=== PATIENT | male | born 1940 | race Caucasian/White ===

== ENCOUNTER 2016-05-13 15:51 | Inpatient (IN) | payer OTHER ==
[~2016-05-13] VITALS: Ht 185.4 cm; Wt 126.5 kg
--- NOTE | ~2016-05-13 | CATHLAB ---
[facility] [place] [address] INVASIVE PROCEDURE REPORT Name: FRANCISCO JOHNSTIFFANY Cortes Room #: 219-P [facility] IN ..#: [id number] Admission: 05/13/16 Attend Phys: Alena Cotton Discharge: Date of : 40 Date of Service: 05/15/16 1314 Report #: [id number] THIS REPORT FOR: //name// CC: Efrain Rowe DATE OF SERVICE: 05/15/2016 NAME OF PROCEDURE: 1. Left superficial femoral artery atherectomy and stent placement. 2. Secondary thrombectomy, left superficial femoral artery. INDICATIONS: Severe peripheral arterial disease. Coronary artery disease. Nonhealing ulcers on the toes of both feet. Previous diagnostic angiogram shows bilateral right and left superficial femoral artery occlusions. DESCRIPTION OF PROCEDURE: Procedure and risk of the left SFA intervention including atherectomy stent placement and thrombectomy were discussed with the patient and his as well as the risk of worsening ischemic symptoms and limb loss. The patient's right groin was prepped and draped in normal sterile fashion. Ultrasound was used to interrogate the right groin and showed the right common femoral artery to be patent. Under ultrasound guidance, access into the right common femoral artery was obtained and a 5 Bermudian sheath was placed. Through this, a catheter was placed to the level of the left common femoral artery and a support wire was placed. A 6-Bermudian crossover sheath was placed via the right groin to the level of the left common femoral artery. Angled catheter/wire were used to manipulate across the area of complete occlusion throughout most of the length of the left superficial femoral artery. Note is made of an old occluded stent in the distal left superficial femoral artery and uppermost popliteal artery. This was successfully crossed with a wire. There was some difficulty in manipulating catheters across the area of occlusion, however. Atherectomy throughout the left superficial femoral artery and upper left popliteal artery was carried out with a 2.0 ContestMachine laser catheter in the standard fashion. Following this, there was poor flow with areas of thrombus and because of this a secondary thrombectomy was performed with a mechanical suction thrombectomy catheter throughout the left superficial femoral artery. Following this, a balloon angioplasty to 4 and 5 mm throughout the length of the left SFA occlusion was accomplished. Again, good flow had not yet been reestablished. Because of this a 6 x 150, 6 x 150, and 6 x 80 smart control stents were placed across the areas of residual stenosis and occlusion throughout the left superficial femoral arteries. These were subsequently dilated to 5 mm. Despite good placement and position of the stents followup angiogram showed satisfactory flow had not been reestablished across the left SFA. Additional diagnostic images from the knee to the ankle on the left was accomplished. Consideration was given to thrombolytic therapy as well as stent graft placement, but in our [address] [address] INVASIVE PROCEDURE REPORT Name: GENESIS JOHNS Room #: 219-P [facility] IN M.R.#: [id number] Admission: 05/13/16 Attend Phys: Alena Cotton Discharge: Date of : 40 Date of Service: 05/15/16 1314 Report #: [id number] experiences has not been helpful in these situations, it was not felt worth the additional risk to the patient. Catheters and wires were removed. Sheath was exchanged for a standard 7-Bermudian length sheath. This will be removed in a couple of hours in the slab lifting engineer holding area. The patient had been on full dose Integrilin throughout the procedure and 5000 units of heparin had been used as well. FINDINGS: Atherectomy and stent placement throughout the occluded left superficial femoral artery was technically satisfactory, but despite this adequate flow throughout the left SFA could not be reestablished despite the techniques above. At the conclusion of the procedure, the patient's flow is at preprocedure baseline including the previously noted stenosis in the mid left popliteal artery and the critical grade stenosis in the distal left popliteal artery and left tibioperoneal trunk. There is chronic occlusion of the left anterior and posterior tibial artery as seen on angiogram from 04/24/2016. The proximal left peroneal artery refills and is a satisfactory size vessel to the level of the ankle where it refills small pedal vessels as previously noted. IMPRESSION: Left SFA atherectomy and stent placement was not successful in reestablishing adequate arterial flow throughout the left SFA. I will discuss this case further with Dr. Berry Garcia at wound care. If wound care is unsuccessful in healing the patient's toe ulcers then the patient's only choice would be a right femoral-posterior tibial artery and a left femoral-peroneal artery bypass. <ELECTRONICALLY SIGNED> By: Phillip Estrada MD 05/16/16 0848 1314 1856 Phillip Estrada MD /nt
--- NOTE | ~2016-05-13 | EKG ---
[address] [address] ELECTROCARDIOGRAM REPORT Name: JOHNSGENESIS THOMPSON Room #: 219-P ADM IN M.R.#: [id number] Admission: 05/13/16 Attend Phys: Antwan Rowe MD Discharge: Date of : 40 Report #: [id number] THIS REPORT FOR: //name// [facility] Test Date: 2016-05-16 Test Time: 12:10:46 Pat Name: GENESIS JOHNS Department: Room: 219 P Gender: M Enrollment Management Manager: YOLIE : 1940 Requested By: Jf Siddiqi Order Number: [id number] MD: Jf Siddiqi Measurements Intervals [place] Rate: 77 P: 56 [place]: 156 QRS: 190 QRSD: 192 T: 1 QT: 514 QTc: 582 Interpretive Statements Atrial-sensed ventricular-paced rhythm No further analysis attempted due to paced rhythm Baseline wander in lead(s) V4 Compared to ECG 05/15/2016 16:39:08 No significant changes Electronically Signed On 05-17-2016 8:02:11 ASSEMBLY CLEANER by Jf Siddiqi [email or web address] <ELECTRONICALLY SIGNED> By: Jf Siddiqi MD 05/17/16 0802 1210 1210 Jf Siddiqi MD /EPI
--- NOTE | ~2016-05-13 | HC ---
[facility] [place] [address] CONSULTATION Name: GENESIS JOHNS Sebastian Room #: 219-P [facility] IN M.R.#: [id number] Admission: 05/13/16 Attend Phys: Antwan Rowe MD Discharge: 05/19/16 Date of : 40 Report #: [id number] THIS REPORT FOR: //name// CC: Efrain Rowe DATE OF SERVICE: 05/14/2016 HISTORY OF PRESENT ILLNESS: A 75-year-old white man seen in Infectious Disease consultation for possibility of cellulitis of lower extremities. The patient is well known to have peripheral vascular disease and he is scheduled to have procedure to lower extremities for this issue. The patient had previous episode of lower extremity ulcerations for which he underwent skin biopsies and he was diagnosed to have IgA vasculitis, lower extremities initially treated with systemic steroids but failed to respond. He was evaluated by dermatologic, Dr. Millard whom I will try to contact to determine the skin biopsy results. PAST MEDICAL HISTORY: Coronary artery disease, coronary artery bypass grafting. Ischemic cardiomyopathy. Status post biventricular ICD implantation on 02/15/2014. Hypertension. Peripheral vascular disease. Chronic kidney insufficiency. Diabetes mellitus. Hypertension. Paroxysmal atrial fibrillation. DRUG ALLERGIES: DOXYCYCLINE. MEDICATIONS: The patient is on treatment with magnesium hydroxide, Atrovent and albuterol inhalation treatments, p.r.n. ondansetron, p.r.n. morphine sulfate, melatonin at bedtime, citalopram, loratadine, amiodarone, aspirin, lisinopril, fenofibrate, atorvastatin, potassium chloride supplementation, pantoprazole, Benadryl p.r.n., insulin aspart taper sliding scale, ranolazine, insulin detemir, carvedilol, isosorbide mononitrate, p.r.n. glucose glucagon, p.r.n. nitroglycerin. SOCIAL AND FAMILY HISTORY, REVIEW OF SYSTEMS: See H and P and as above. PHYSICAL EXAMINATION: GENERAL: Overweight man, not toxic looking, no distress, afebrile since admission. VITAL SIGNS: Temperature 97.5, pulse 62, respirations 18, BP 148/85. HEENMT: Within range. NECK: Supple, no thyromegaly. LUNGS: Clear. CARDIOVASCULAR: S1, S2. No gallop or murmur. ABDOMEN: Obese, soft. EXTREMITIES: There is an erythematous discoloration of legs, but no increased temperature. Peripheral pulses not possible. There are superficial ulcerations [address] [address] CONSULTATION Name: GENESIS JOHNS Room #: 219-P [facility] IN [facility].#: [id number] Admission: 05/13/16 Attend Phys: Antwan Rowe MD Discharge: 05/19/16 Date of : 40 Report #: [id number] on toes and legs, no signs of infection. NEUROLOGIC: Grossly within normal limits. ASSESSMENT: 1. Lower extremities erythema, swelling, superficial skin ulceration of toes, possible vasculitis by biopsy in year 2013 - IgA vasculitis. 2. Severe peripheral vascular disease vascular intervention. 3. Diabetes mellitus. 4. Chronic kidney disease. 5. Coronary artery bypass grafting and ischemic cardiomyopathy. 6. Status post permanent pacemaker and ICD replacement year 2013. 7. Anemia of chronic disease. SUGGESTIONS: At present very much we are dealing with acute bacterial cellulitis. Suspect we may be dealing with some vasculitic and peripheral vascular disease issues. We will monitor sed rate and CRP. We will try to contact Dr. Millard, rate setter to determine treatments that were instituted after skin biopsy was obtained. At present, no indication for antibiotic. Dr. Jf Siddiqi, thank you for requesting my suggestion. <ELECTRONICALLY SIGNED> By: Zach Siddiqi MD 05/20/16 1136 1426 1740 Zach Siddiqi MD /nt
--- NOTE | ~2016-05-13 | DEA ---
[facility] [place] [address] SUMMARY Name: ANDREASGENESIS L Room #: 219-P [facility] IN ..#: [id number] Admission: 05/13/16 Attend Phys: Antwan Rowe MD Discharge: 05/19/16 Date of : 40 Report #: [id number] THIS REPORT FOR: //name// CC: Efrain Rowe DATE OF SERVICE: 05/19/2016 DISCHARGE DIAGNOSES: 1. Status post cardiac arrest, agonal rhythm. 2. Severe cardiomyopathy, EF of 15% to 20%, status post defibrillator and permanent pacemaker. 3. Peripheral vascular disease status post right femoropopliteal bypass. 4. Status post angiogram with intervention on 05/15/2016. 5. Elevated troponin. 6. Cmhnx-xu-apoetmp systolic heart failure. 7. Chronic renal insufficiency. 8. Chronic kidney disease. 9. Acute renal insufficiency. 10. Hypertension. 11. Elevated transaminitis. 12. Diabetes. 13. Hyperlipidemia. 14. Recent hospitalization for a non-ST segment elevation myocardial infarction status post cardiac catheterization with no intervention performed. 15. Paroxysmal atrial fibrillation. 16. IgA vasculitis. 17. Nausea. HOSPITAL COURSE: The patient is a 75-year-old male with history of multiple comorbid conditions, coronary artery disease, CABG in 2002, hypertension, hyperlipidemia, diabetes, severe ischemic cardiomyopathy, pacemaker/defibrillator in January 2014, peripheral vascular disease and chronic renal insufficiency, was admitted on 05/13/2016 secondary to increasing pain and also wounds in his toes. Please look at the history and physical examination dictated by me on 05/13/2016. The patient was admitted for peripheral vascular disease. He was evaluated by vascular surgery and interventional radiology. He underwent an angiogram with stent placement and also secondary thrombectomy in his left superficial femoral artery. The patient was monitored in the CCU tele. He had a nuclear test done in July 2015 which showed EF of 22%,old infarct with no ischemia. He also has a prior history of paroxysmal atrial fibrillation. His last cardiac catheterization was on 01/31/2016 which showed severe coronary artery disease with patent saphenous vein graft and patent HUERTA and no intervention was performed at that time. The patient had small vessel disease and medical treatment was recommended at that point. [address] [address] SUMMARY Name: GENESIS JOHNS Room #: 219-P [facility] IN [facility]#: [id number] Admission: 05/13/16 Attend Phys: Antwan Rowe MD Discharge: 05/19/16 Date of : 40 Report #: [id number] The patient was evaluated by infectious disease specialist, Dr. Siddiqi, during this admission. Over the last couple of days, the patient also noticed elevated liver enzymes. He was seen by the lap regulator; he underwent an ultrasound which showed cholelithiasis without any evidence of cholecystitis. It was felt that the elevated liver enzymes to be secondary to medication/shock liver. The patient also had elevated troponin which Dr. Siddiqi was aware of. On 05/19/2016, at around 3 a.m. in the morning, the patient apparently was walking back from the bathroom and he collapsed. Rinku henry was called. The patient was pulseless and apneic. His rhythm was basically agonal rhythm. ACLS was performed and the patient's resuscitation was unsuccessful. The patient was pronounced on 05/19/2016 morning. <ELECTRONICALLY SIGNED> By: Antwan Rowe MD 05/27/16 1432 1533 2243 Antwan Rowe MD /nt
--- NOTE | ~2016-05-13 | EKG ---
[address] [facility] [place] [address] ELECTROCARDIOGRAM REPORT Name: GENESIS JOHNS Sebastian Room #: 219-P ADM IN M.R.#: [id number] Admission: 05/13/16 Attend Phys: Antwan Rowe MD Discharge: Date of : 40 Report #: [id number] THIS REPORT FOR: //name// [facility] Test Date: 2016-05-15 Test Time: 16:39:08 Pat Name: GENESIS JOHNS Department: Room: 219 Gender: M Welding Machine Operator Thermit: Alena CRAFT : 1940 Requested By: Antwan Rowe Order Number: [id number] MD: Dago Villa Measurements Intervals [place] Rate: 71 P: 74 [place]: 164 QRS: 193 QRSD: 213 T: 2 QT: 539 QTc: 586 Interpretive Statements Atrial-sensed ventricular-paced rhythm No further analysis attempted due to paced rhythm Compared to ECG 02/22/2016 13:09:10 No significant changes Electronically Signed On 05-16-2016 7:37:37 LICENSING DIRECTOR by Dago Villa [email or web address] <ELECTRONICALLY SIGNED> By: Dago Villa MD, [facility] 05/16/16 0737 1639 1639 Dago Vilal MD, [facility] /EPI
--- NOTE | ~2016-05-13 | HC ---
[facility] [place] [address] CONSULTATION Name: GENESIS JOHNS Room #: 219-P [facility] IN .R.#: [id number] Admission: 05/13/16 Attend Phys: Antwan Rowe MD Discharge: Date of : 40 Report #: [id number] THIS REPORT FOR: //name// CC: Efrain Rowe REASON FOR CONSULTATION: Coronary artery disease and CHF. HISTORY OF PRESENT ILLNESS: The patient is a patient of mine who I follow as an outpatient. He has a history of known coronary artery disease status post CABG as well as an ischemic cardiomyopathy, status post Bi-V ICD implantation. I saw the patient in clinic about a month ago. At that time, he was being seen for routine cardiac followup and he complained of some small ulcers on his bilateral large toes. The patient wears chronic compression stockings due to chronic lower extremity swelling, he has had some problems with vasculitis with some chronic skin changes on his shins. As part of to further evaluate this, I had him seen in the wound care clinic as well as by Dr. Estrada if he was found to have abnormal arterial Dopplers. He underwent an angiogram of both legs and no interventions were performed due to severity of his disease. The patient came into the clinic yesterday for further evaluation and was found to have worsening bilateral foot pain. He was sent to the emergency room and admitted. From a cardiovascular standpoint, the patient is doing relatively well. He denies any chest pain. He reports that his shortness of breath is at baseline. He denies any PND or orthopnea. He denies any presyncope or syncope. REVIEW OF SYSTEMS: GENERAL: No fevers or chills. HEENT: No blurred vision. CARDIOVASCULAR: As above. PULMONARY: No productive cough. GASTROINTESTINAL: No nausea or vomiting. GENITOURINARY: No dysuria. MUSCULOSKELETAL: No myalgias or arthralgias, just severe bilateral foot pain. ENDOCRINE: No heat or cold intolerance. PAST MEDICAL HISTORY: 1. Coronary artery disease status post CABG in 2002, at [facility]. 2. Ischemic cardiomyopathy, EF of 15-20%. 3. Peripheral vascular disease, status post right femoral popliteal bypass surgery. 4. Prior vasculitis. 5. Chronic renal insufficiency. 6. Hypertension. 7. Diabetes. 8. Hyperlipidemia. 9. Nuclear stress test in July 2015, showing EF of 22%, old infarcts, and no ischemia. [facility] [address] [place] [address] CONSULTATION Name: GENESIS JOHNS Sebastian Room #: 219-P [facility] IN ..#: [id number] Admission: 05/13/16 Attend Phys: Antwan Rowe MD Discharge: Date of : 40 Report #: [id number] 10. Paroxysmal atrial fibrillation, CHADS-VASc score 6, on Xarelto therapy. SOCIAL HISTORY: Does not smoke. FAMILY HISTORY: Noncontributory. ALLERGIES: DOXYCYCLINE. Last cardiac catheterization was on 10/05/2015, which showed severe coronary artery disease with patient saphenous vein graft and patent HUERTA and no intervention was performed at that time. His last echo was in July 2015, showing an EF of 25-30%. PHYSICAL EXAMINATION: VITAL SIGNS: Temperature is 37.1, pulse 71, respirations 18, blood pressure 125/74, and sats 93%. GENERAL: He is in no acute distress, sitting up in the chair. HEENT: Oropharynx is clear. Sclerae are anicteric. NECK: Supple with no thyromegaly or carotid bruits. HEART: Regular rate and rhythm with normal S1 and S2. No S3 or S4. He does not have elevated jugular venous pressure. LUNGS: Clear to auscultation bilaterally. ABDOMEN: Soft, nontender, and nondistended. EXTREMITIES: There is some trace lower extremity edema, both feet are cold, peripheral pulses are not easily palpable. He has delayed capillary refill on both feet. He does have some small ulcerations at the large toes bilaterally. Both legs are very red and there is some skin breakdown on both shins. He has some chronic skin changes from his prior episode of vasculitis. NEUROLOGIC: His cranial nerves 2-12 are intact. LABORATORY DATA: White count is 5.4, hemoglobin 10.4, and platelets 329. Potassium is 3.5, creatinine 1.9 up from 1.7. Blood cultures are pending. ASSESSMENT AND PLAN: In summary, the patient is a 75-year-old with history of coronary artery disease, ischemic cardiomyopathy, presenting with worsening bilateral lower extremity foot pain with decreased pulses. In terms of his cardiovascular status, he appears to be stable and I would continue his current medical regimen. In terms of his anticoagulation status, I will hold his Xarelto in case he requires any surgical interventions during this hospitalization. I would recommend an infectious disease consult to ensure that the patient does not have a component of cellulitis versus osteomyelitis. It [facility] [address] [place] [address] CONSULTATION Name: GENESIS JOHNS Room #: 219-P [facility] IN .R.#: [id number] Admission: 05/13/16 Attend Phys: Antwan Rowe MD Discharge: Date of : 40 Report #: [id number] appears that the wound care docs have also been consulted to help with some of his lower extremity swelling and skin lesions. I will continue to follow. <ELECTRONICALLY SIGNED> By: Jf Siddiqi MD 05/16/16 1454 0847 0959 Jf Siddiqi MD /nt
--- NOTE | ~2016-05-13 | HC ---
[facility] [place] [address] CONSULTATION Name: GENESIS JOHNS Room #: 219-P ADM IN ..#: [id number] Admission: 05/13/16 Attend Phys: Antwan Rowe MD Discharge: Date of : 40 Report #: [id number] THIS REPORT FOR: //name// CC: Efrain Rowe MD DATE OF SERVICE: 05/17/2016 HISTORY OF PRESENT ILLNESS: The patient is a 75-year-old male with a history of coronary artery disease and congestive heart failure. He has undergone a CABG in 2002. He has also a history of peripheral vascular disease, chronic renal insufficiency, hypertension, diabetes. Reason for GI consultation at this time is elevation in liver function tests. The patient had normal LFTs on May 13 during this hospitalization, LFTs were repeated today, his AST is now 1391, total bilirubin is 1.0, ALT is 918. He reports no history of liver disease. No significant history of alcohol. He had been on amiodarone and a statin and this has now been discontinued. He was originally admitted for cellulitis of the lower extremities. He currently denies any chest pain, shortness of breath, fevers or chills. He has been diuresing since admission as well. He did report increased lower extremity edema upon admission. PAST MEDICAL HISTORY: Coronary artery disease, previous history of coronary artery bypass graft, history of congestive heart failure, hypertension, diabetes, peripheral vascular disease, chronic renal insufficiency, atrial fibrillation, previous pacemaker defibrillator replacement in 2014, history of COPD. ALLERGIES: DOXYCYCLINE. SOCIAL HISTORY: Cigarette smoking in the past. He denies any alcohol use. REVIEW OF SYSTEMS: As per HPI. CURRENT MEDICATIONS: Carvedilol, magnesium, albuterol, Atrovent, Zofran p.r.n., morphine p.r.n., melatonin, citalopram, loratadine, aspirin 325 a day, potassium chloride, Protonix 40 mg every day, Benadryl p.r.n., insulin sliding scale, ranolazine. Amiodarone has been discontinued as well as lisinopril and atorvastatin and carvedilol as well as Lasix. FAMILY HISTORY: Negative for colon cancer. PHYSICAL EXAMINATION: VITAL SIGNS: Temperature is 99.4, pulse 68, blood pressure is 90/56, respiratory rate is 20. [facility] [address] [place] [address] CONSULTATION Name: GENESIS JOHNS Room #: 219-P [facility] IN [facility]#: [id number] Admission: 05/13/16 Attend Phys: Antwan Rowe MD Discharge: Date of : 40 Report #: [id number] GENERAL: He is alert and oriented x3 in no acute distress. HEENT: Sclerae nonicteric. Oropharynx is clear. NECK: Supple, without lymphadenopathy. CARDIOVASCULAR: Regular rate. CHEST: Clear to auscultation bilaterally. ABDOMEN: Soft. He is mildly distended. Positive bowel sounds. Nontender. EXTREMITIES: He has dressing covering his lower extremities bilaterally. LABORATORY DATA: Sodium 139, potassium 4.6, chloride 104, bicarbonate 27, BUN 35, creatinine 2.3, glucose 187. AST is 1391, on the it was 50. Lipase 123, total bilirubin is 1.0, alkaline phosphatase 54. ALT is 918 today, on the it was 27. Albumin 3.1. Troponin is ____ and that was on May 15. INR 1.6. WBC is 11.9, hemoglobin 10.5, platelet count is 311. An ultrasound of the abdomen has been ordered. ASSESSMENT AND PLAN: Elevated liver function test: The patient had essentially normal liver function test 4 days ago, there has been an increase in AST and ALT since that time, suspect this is due to either medication related, his statin and amiodarone have now been discontinued. Hypotension could play a role, although his blood pressure lowest has been recorded at 90/56, it is possible ____ based on his history, but we will also check viral hepatitis and autoimmune markers at this time. In the meantime, agree with ultrasound which has been ordered and monitoring liver function test on a daily basis. We will continue to follow. Thank you for allowing me to participate in his care. <ELECTRONICALLY SIGNED> By: Rudy Rosa MD 05/19/16 0818 1144 1254 Rudy Rosa MD /nt
[2016-05-13 15:51] VITALS: BP 148/87
[~2016-05-13 15:51] MED LIST: AMBIEN 5 MG TABL5 M1 PO; ASPIRIN325 PO; ATORVASTATIN CA40 MG PO; BUSPAR 5 MG TABL5 M1 PO; BUSPIRONE HCL10 MG PO; CARVEDILOL12.5 MG PO; CELEXA 20 MG TA20 MG PO; CIPRO500 MG PO; CLARITIN10 MG PO; DESYREL50 MG PO; FISH OIL 1,001000 M1 PO; GLUCOPHAGE500 MG PO; HYDROCHLOROTH12.5 MG PO; HYDROCODONE-AP1 EAC6 PO; HYDROXYZINE HCL25 M1 PO; IMDUR 60 MG TAB60 M1 PO; KLOR-CON 1010 MEQ PO; LASIX 40 MG TAB40 M2 PO; LASIX 80 MG TAB80 MG PO; LEVEMIR SUBQ; LEXAPRO20 MG PO; LISINOPRIL10 MG PO; LOFIBRA160 MG PO; NICOTINE TRANSD21 M1; NITROGLYCERIN0.4 MG SL; NOVOLOG100 UNIT/1 SUBQ; OMEPRAZOLE 20 M20 MG PO; PACERONE 200 M200 M1 PO; PREDNISONE 10 M10 MG PO; PREDNISONE50 MG PO; PRINIVIL20 MG PO; PROAIR HFA8.5 GM INH; TRAZODONE 150150 M1 PO; TRAZODONE HCL50 MG PO; TYLENOL325 MG PO; VITAMIN D10000 UNIT PO; VITAMINC500 PO; XARELTO20 MG PO; ZOCOR80 MG PO
[2016-05-13] MEDS ORDERED: RANEXA500 MG PO (16:22)
[2016-05-13] MEDS ORDERED: LEXAPRO20 MG PO (16:22)
[2016-05-13 16:27] LABS: URINE BILIRUBIN NEGATIVE (Negative); URINE BLOOD NEGATIVE (Negative); URINE COLOR YELLOW; URINE GLUCOSE-RANDOM* NEGATIVE (Negative); URINE KETONES NEGATIVE (Negative); URINE NITRITE NEGATIVE (Negative); URINE PROTEIN (DIPSTICK) 1+ (Negative); URINE SPECIFIC GRAVITY 1.015 (1.003-1.035)
[2016-05-13 16:40] LABS: BACTERIA 1-9 Few /HPF (None Seen); CASTS None Seen /LPF (None Seen); CRYSTALS None Seen /LPF (None Seen); SQUAMOUS None Seen /LPF (0-3); URINE RBC None Seen /HPF (0-2); URINE WBC 0-5 Rare /HPF (0-5)
[2016-05-13 16:40] LABS: ABSOLUTE NEUTROPHILS 5.3 thou/uL (1.4-8.2); BASOPHILS 2.4 % (0.0-2.0); EOSINOPHILS 4.3 % (0.0-3.0); HEMATOCRIT 35.8 % (42.0-52.0); HEMOGLOBIN 11.2 gm/dL (14.0-18.0); LYMPHOCYTES 15.7 % (24.0-44.0); MCH 23.7 pg (26.0-34.0); MCHC 31.3 % (28.0-37.0); MCV 75.7 fL (80.0-100.0); MONOCYTES 8.8 % (1.0-8.0); PLATELET COUNT 404 thou/uL (150-400); POLYS 68.8 % (36.0-66.0); RBC 4.73 mil/uL (4.50-6.00); RDW 21.9 % (10.5-14.5); WBC 7.7 thou/uL (4.0-11.0)
[2016-05-13 16:45] LABS: MANUAL DIFF NO
[2016-05-13 16:48] LABS: CALCIUM 8.8 mg/dL (8.5-10.1); CREATININE 1.7 mg/dL (0.6-1.3)
[2016-05-13 16:53] LABS: ALBUMIN 3.4 g/dL (3.4-5.0); DIRECT BILIRUBIN 0.2 mg/dL (<0.1-0.3); TOTAL BILIRUBIN 0.5 mg/dL (<0.1-1.0); TOTAL PROTEIN 7.6 g/dL (6.4-8.2)
[2016-05-13 16:54] LABS: APTT 34.1 Seconds (24.5-32.8); INR 1.6; PROTIME 16.3 Seconds (9.3-11.4)
[2016-05-13 18:33] VITALS: BP 119/63
[2016-05-13 19:15] VITALS: BP 132/75
[2016-05-13 23:30] VITALS: BP 128/78
[2016-05-14 03:13] LABS: GLYCOHEMOGLOBIN (HGB A1C) 6.3 % (4.8-5.6)
[2016-05-14 03:20] VITALS: BP 125/74
[2016-05-14 06:09] LABS: ABSOLUTE NEUTROPHILS 3.3 thou/uL (1.4-8.2); EOSINOPHILS 4.5 % (0.0-3.0); HEMATOCRIT 32.9 % (42.0-52.0); HEMOGLOBIN 10.4 gm/dL (14.0-18.0); LYMPHOCYTES 22.8 % (24.0-44.0); MCH 24.3 pg (26.0-34.0); MCHC 31.5 % (28.0-37.0); MONOCYTES 9.8 % (1.0-8.0); POLYS 61.9 % (36.0-66.0); RBC 4.28 mil/uL (4.50-6.00); RDW 22.3 % (10.5-14.5); WBC 5.4 thou/uL (4.0-11.0)
[2016-05-14 06:20] LABS: MANUAL DIFF NO; PLATELET COUNT 329 thou/uL (150-400)
[2016-05-14 06:28] LABS: ANION GAP 8 mmol/L (7-16); BUN 28 mg/dL (7-18); CALCIUM 8.5 mg/dL (8.5-10.1); CHLORIDE 105 mmol/L (98-107); CHOLESTEROL 132 mg/dL (<200); CO2 29 mmol/L (21-32); CREATININE 1.9 mg/dL (0.6-1.3); GLUCOSE 248 mg/dL (70-99); HDL CHOLESTEROL 26 mg/dL (>40); LDL CHOLESTEROL 74 mg/dL (<100); MAGNESIUM 2.1 mg/dL (1.8-2.4); POTASSIUM 3.5 mmol/L (3.5-5.1); SODIUM 142 mmol/L (136-145); TC:HDL 5.1 Ratio (Not establshd); TRIGLYCERIDE 161 mg/dL (<150); VLDL 32 mg/dL (<40)
[2016-05-14 08:00] VITALS: BP 140/84
[2016-05-14 12:00] VITALS: BP 140/77
[2016-05-14 16:29] VITALS: BP 142/86
[2016-05-14 19:45] VITALS: BP 171/88
[2016-05-15] VITALS (15 sets, daily range): BP systolic 116–167; BP diastolic 33–93
[2016-05-15 04:47] LABS: HEMATOCRIT 35.3 % (42.0-52.0); HEMOGLOBIN 10.9 gm/dL (14.0-18.0); MCH 23.6 pg (26.0-34.0); MCHC 30.7 % (28.0-37.0); MCV 76.8 fL (80.0-100.0); RBC 4.6 mil/uL (4.50-6.00); RDW 21.9 % (10.5-14.5); WBC 6.9 thou/uL (4.0-11.0)
[2016-05-15 04:54] LABS: CALCIUM 8.8 mg/dL (8.5-10.1); CREATININE 1.5 mg/dL (0.6-1.3); POTASSIUM 4.1 mmol/L (3.5-5.1)
[2016-05-16 02:10] VITALS: BP 148/80
[2016-05-16 04:11] LABS: HEMATOCRIT 35.3 % (42.0-52.0); MCH 23.5 pg (26.0-34.0); MCHC 31.1 % (28.0-37.0); MCV 75.5 fL (80.0-100.0); PLATELET COUNT 358 thou/uL (150-400); RBC 4.68 mil/uL (4.50-6.00); RDW 22.1 % (10.5-14.5); WBC 11.2 thou/uL (4.0-11.0)
[2016-05-16 04:12] LABS: MANUAL DIFF YES
[2016-05-16 04:28] LABS: CALCIUM 8.6 mg/dL (8.5-10.1); CREATININE 1.7 mg/dL (0.6-1.3)
[2016-05-16 05:38] LABS: ABSOLUTE NEUTROPHILS 10.2 thou/uL (1.4-8.2); HYPOCHROMASIA 1+; TOTAL CELL COUNT 100
[2016-05-16 05:41] LABS: ANISOCYTOSIS 3+; MICROCYTES 1+; OVALOCYTES 1+; POIKILOCYTOSIS 1+; POLYCHROMASIA 1+
[2016-05-16 08:00] VITALS: BP 104/59
[2016-05-16 11:30] VITALS: BP 106/73
[2016-05-16 12:00] VITALS: BP 131/78
[2016-05-16 16:30] VITALS: BP 111/58
[2016-05-16 20:16] VITALS: BP 108/63
[2016-05-17 02:55] VITALS: BP 96/59
[2016-05-17 05:21] LABS: HEMOGLOBIN 10.5 gm/dL (14.0-18.0); MCH 23.6 pg (26.0-34.0); MCHC 30.9 % (28.0-37.0); MCV 76.6 fL (80.0-100.0); PLATELET COUNT 311 thou/uL (150-400); RBC 4.44 mil/uL (4.50-6.00); RDW 22.9 % (10.5-14.5); WBC 11.9 thou/uL (4.0-11.0)
[2016-05-17 05:36] LABS: MANUAL DIFF YES
[2016-05-17 05:53] LABS: ALBUMIN 3.1 g/dL (3.4-5.0); CALCIUM 8.3 mg/dL (8.5-10.1); CREATININE 2.3 mg/dL (0.6-1.3); MAGNESIUM 2.2 mg/dL (1.8-2.4); POTASSIUM 4.6 mmol/L (3.5-5.1); TOTAL PROTEIN 6.7 g/dL (6.4-8.2)
[2016-05-17 06:54] LABS: ABSOLUTE NEUTROPHILS 11.2 thou/uL (1.4-8.2); ANISOCYTOSIS 3+; HYPOCHROMASIA 2+; MICROCYTES 2+; NUCLEATED RBCS 1 /100WBC; POIKILOCYTOSIS 1+; POLYCHROMASIA OCCASIONAL; TOTAL CELL COUNT 100
[2016-05-17 07:55] VITALS: BP 121/83; BP 130/89
[2016-05-17 08:00] VITALS: BP 90/56
[2016-05-17 12:15] VITALS: BP 120/69
[2016-05-17 16:05] VITALS: BP 98/63
[2016-05-17 20:35] VITALS: BP 116/65
[2016-05-18 02:06] LABS: HEPATITIS C VIRUS AB <0.1 (0.0-0.9)
[2016-05-18 02:54] VITALS: BP 96/76
[2016-05-18 03:46] LABS: HEMATOCRIT 32.1 % (42.0-52.0); MCH 23.6 pg (26.0-34.0); MCHC 31.1 % (28.0-37.0); MCV 75.8 fL (80.0-100.0); PLATELET COUNT 289 thou/uL (150-400); RBC 4.24 mil/uL (4.50-6.00); RDW 22.4 % (10.5-14.5); WBC 12.1 thou/uL (4.0-11.0)
[2016-05-18 03:50] LABS: MANUAL DIFF YES
[2016-05-18 04:07] LABS: ALBUMIN 3.1 g/dL (3.4-5.0); CALCIUM 8.7 mg/dL (8.5-10.1); CREATININE 2.8 mg/dL (0.6-1.3); DIRECT BILIRUBIN 0.8 mg/dL (<0.1-0.3); POTASSIUM 4.8 mmol/L (3.5-5.1); TOTAL BILIRUBIN 1.2 mg/dL (<0.1-1.0)
[2016-05-18 05:44] LABS: ABSOLUTE NEUTROPHILS 9.9 thou/uL (1.4-8.2); ANISOCYTOSIS 2+; MICROCYTES 1+; NUCLEATED RBCS 3 /100WBC; PLATELET ESTIMATE NORMAL; POLYCHROMASIA 1+; TOTAL CELL COUNT 100
[2016-05-18 08:15] VITALS: BP 104/57
[2016-05-18 12:10] VITALS: BP 109/64
[2016-05-18 16:30] VITALS: BP 118/67
[2016-05-18 19:19] VITALS: BP 114/67
== END 2016-05-19 03:20 | DRG 270 ==
LOC: ER 15:51 → 4N 17:37 → EROBS 17:37 → 4N 18:33 → 4W 05-15 12:44 → 2N 05-15 20:32
PROVIDERS: Family Medicine; Internal Medicine; Nurse Practitioner; Physician Assistant; Specialist
PROC: 04CL3ZZ Extirpation of Matter from Left Femoral Artery, Percutaneous Approach (ICD-10-PCS; principal; 2016-05-15)
PROC: 047L3DZ Dilation of Left Femoral Artery with Intraluminal Device, Percutaneous Approach (ICD-10-PCS; 2016-05-15)
DX: E11.51 Type 2 diabetes mellitus with diabetic peripheral angiopathy without gangrene (principal); N17.0 Acute kidney failure with tubular necrosis; I50.23 Acute on chronic systolic (congestive) heart failure; L03.115 Cellulitis of right lower limb; I13.0 Hypertensive heart and chronic kidney disease with heart failure and stage 1 through stage 4 chronic kidney disease, or unspecified chronic kidney disease; L03.116 Cellulitis of left lower limb; E78.00 Pure hypercholesterolemia, unspecified; J44.9 Chronic obstructive pulmonary disease, unspecified; L97.509 Non-pressure chronic ulcer of other part of unspecified foot with unspecified severity; E11.649 Type 2 diabetes mellitus with hypoglycemia without coma; E86.0 Dehydration; I25.10 Atherosclerotic heart disease of native coronary artery without angina pectoris; I25.5 Ischemic cardiomyopathy; E78.5 Hyperlipidemia, unspecified; I48.0 Paroxysmal atrial fibrillation; E11.22 Type 2 diabetes mellitus with diabetic chronic kidney disease; R74.0 Nonspecific elevation of levels of transaminase and lactic acid dehydrogenase [LDH]; N18.3 Chronic kidney disease, stage 3 (moderate); I46.9 Cardiac arrest, cause unspecified; D63.8 Anemia in other chronic diseases classified elsewhere; Z95.1 Presence of aortocoronary bypass graft; Z95.810 Presence of automatic (implantable) cardiac defibrillator; Z79.899 Other long term (current) drug therapy; Z79.4 Long term (current) use of insulin; Z79.82 Long term (current) use of aspirin; Z88.1 Allergy status to other antibiotic agents; Z87.891 Personal history of nicotine dependence; I77.6 Arteritis, unspecified; I73.9 Peripheral vascular disease, unspecified
CPT/HCPCS: 10081; 10091